=== PATIENT | male | born 1990 | race Caucasian/White ===

== ENCOUNTER 2020-05-11 12:28 | Day surgery (SDC) | payer OTHER ==
[~2020-05-11] VITALS: Ht 175.3 cm; Wt 81.8 kg
[2020-05-11 13:01] LABS: BASO # 0.1 (0.0-0.2); BASO % 0.4 % (0.0-2.0); EOS % 0.2 % (0-4.0); GRAN # 15.1 (1.4-6.5); GRAN % 83.3 % (42.2-75.2); HEMATOCRIT 45.7 % (42.0-52.0); HEMOGLOBIN 16.2 g/dl (13.5-18.0); LYMPH # 1.4 (1.2-3.4); LYMPH % 7.7 % (20.0-51.0); MEAN CELL VOLUME 85 fl (80.0-100.0); MEAN CORPUSCULAR HEMOGLOBIN 30 pg (27.0-31.0); MEAN CORPUSCULAR HGB CONC 35 g/dl (33.0-37.0); MEAN PLATELET VOLUME 9.8 fl (7.4-10.4); MONO # 1.5 (0.1-0.6); PLATELET COUNT 259 K/mm3 (130-400); RED BLOOD COUNT 5.37 M/mm3 (4.20-5.60); REDCELL DISTRIBUTION WIDTH-CV 11.4 % (11.5-14.5)
[2020-05-11 13:13] LABS: ALBUMIN 4.7 gm/dL (3.5-5.0); BILIRUBIN,TOTAL 1.4 mg/dL (0.0-1.0); C-REACTIVE PROTEIN 1.1 mg/dL (0.0-0.9); CALCIUM 9.6 mg/dL (8.4-10.2); CREATININE, serum 0.91 (0.66-1.25); TOTAL PROTEIN 7.9 gm/dL (6.4-8.2)
[2020-05-11] MEDS ORDERED: NORCO 325 MG-51 TAB PO (15:20)
[2020-05-11] MEDS ORDERED: MOTRIN 600600 MG/TAB PO (15:20)
[2020-05-11 16:55] VITALS: BP 109/59; PULSE 91
[2020-05-11 17:03] VITALS: BP 120/69; PULSE 91
[2020-05-11 17:25] VITALS: BP 112/56; PULSE 101; TEMP 99
[2020-05-11 17:40] VITALS: BP 101/52; PULSE 84
[2020-05-11 18:10] VITALS: BP 97/55; PULSE 79
[2020-05-11 18:40] VITALS: BP 106/60; PULSE 78
--- NOTE | 2020-05-11 19:39 | NUR ---
Patient received post op at 1700. He has done well. Lapsite x3 bandaids intact. Voided x2. Tolerated his dinner. Denies nausea. Vss. Int dc. He denies the need for pain medication. He is wanting to get home. We reviewed all discharge paper work inclusing prescriptions, insicion care, activity & diet. He deneis questions or concerns. Dr. Byrnes was called & orders obtained.
== END 2020-05-11 19:42 | disposition home health service (06) ==
LOC: COL.ER 12:28 → SDCO 14:54 → SURG 17:12 → SDCO 17:12 → SURG 17:12 → SDCO 19:42
PROVIDERS: Nurse Practitioner
DX: K35.80 Unspecified acute appendicitis (principal); F17.210 Nicotine dependence, cigarettes, uncomplicated
CPT/HCPCS: OP; J0330; J1100; J1885; J2175; J2270; J2405; J2543; J2704; J3010; J7030; Q9967